=== PATIENT | male | born 1975 | race Caucasian/White ===

== ENCOUNTER 2019-06-21 17:04 | Emergency (ER) | payer BC ==
[2019-06-21] MEDS ORDERED: Tetan/Diph/Pertus SYR(Tdap)* 0.5 ML SYR(BOOSTRIX) use SYR contains LATEX IM ONE (17:28)
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
[2019-06-21 18:48] VITALS: BP 130/91
== END 2019-06-21 18:47 | disposition home or self-care (01) ==
LOC: ED 17:04
DX: M79.642 Pain in left hand (principal); S61.012A Laceration without foreign body of left thumb without damage to nail, initial encounter; W26.0XXA Contact with knife, initial encounter; Y92.9 Unspecified place or not applicable; F17.210 Nicotine dependence, cigarettes, uncomplicated
CPT/HCPCS: 12001; 90471; 90715; 99282